=== PATIENT | female | born 1930 | race Caucasian/White ===

== ENCOUNTER 2016-09-20 15:04 | Emergency (ER) | payer OTHER ==
[~2016-09-20] VITALS: Ht 157.5 cm; Wt 54.4 kg
[~2016-09-20 15:04] MED LIST: ALPR0.25 PO; ASPI81CH43 PO; ATEN-60 PO; Atorvastatin Calcium PO; DOCU-94 PO; ESOM40CA39 PO; LEVO88TA4 PO
[2016-09-20 16:25] LABS: Basophils # (auto) 0 uL; Basophils % (auto) 0.6 % (0.0-2.0); Eosinophils # (auto) 0.2 uL; Eosinophils % (auto) 2.7 % (0.0-7.0); Hemoglobin 10.3 g/dL (12.2-16.2); Lymphocytes % (auto) 13.3 % (10.0-50.0); Mean Corpuscular Hemoglobin 29.5 pg (28.0-32.0); Mean Corpuscular Hgb Conc. 32.3 g/dL (32.0-36.0); Mean Corpuscular Volume 91.2 fL (80.0-100.0); Mean Platelet Volume 7.6 fL (7.4-10.4); Monocytes # (auto) 1.1 uL; Monocytes % (auto) 15.6 % (0.0-12.0); Neutrophils # (auto) 4.8 uL; Neutrophils % (auto) 67.8 % (37.0-80.0); Platelet Count (auto) 233 10^3/uL (140-450); Red Cell Distribution Width 14.6 % (11.6-16.0); White Blood Cell 7.2 10^3/uL (4.4-10.8)
[2016-09-20 16:28] LABS: Albumin 2.7 g/dL (3.4-5.0); BUN/Creatinine Ratio 17.2; Bilirubin, Total 0.2 mg/dL (0.2-1.0); Calcium 8.4 mg/dL (8.5-10.1); Potassium 4.1 mmol/L (3.5-5.1); Total Protein 7.4 g/dL (6.4-8.2)
[2016-09-20 23:00] VITALS: BP 114/45
== END 2016-09-20 23:29 | disposition home or self-care (01) ==
LOC: EDUNIT# 15:04 → ER 15:24
DX: T88.8XXA Other specified complications of surgical and medical care, not elsewhere classified, initial encounter (principal); L02.91 Cutaneous abscess, unspecified; I48.91 Unspecified atrial fibrillation; I25.10 Atherosclerotic heart disease of native coronary artery without angina pectoris; I13.0 Hypertensive heart and chronic kidney disease with heart failure and stage 1 through stage 4 chronic kidney disease, or unspecified chronic kidney disease; I50.9 Heart failure, unspecified; N18.9 Chronic kidney disease, unspecified; J44.9 Chronic obstructive pulmonary disease, unspecified; E78.5 Hyperlipidemia, unspecified; Z86.73 Personal history of transient ischemic attack (TIA), and cerebral infarction without residual deficits; Z85.9 Personal history of malignant neoplasm, unspecified; Z79.82 Long term (current) use of aspirin; Z87.440 Personal history of urinary (tract) infections; Z86.711 Personal history of pulmonary embolism
CPT/HCPCS: 36415; 80053; 85025; 93005; 93926

== ENCOUNTER 2019-11-03 16:16 | Inpatient (IN) | payer OTHER ==
[~2019-11-03] VITALS: Ht 165.1 cm; Wt 63.9 kg
[2019-11-03] MEDS ORDERED: SODIUM CHLORIDE 0.9% 1,000 ML IVB ONE (16:36)
[2019-11-03] MEDS ORDERED: LEVO100T8 (16:42)
[2019-11-03] MEDS ORDERED: [UNRECOGNIZED DRUG - CODE] (16:42)
[2019-11-03] MEDS ORDERED: ATEN25TA (16:42)
[2019-11-03] MEDS ORDERED: OXYB5TAB61 (16:42)
[2019-11-03] MEDS ORDERED: TIZA2TAB3 (16:42)
[2019-11-03] MEDS ORDERED: VANCOMYCIN (16:42)
[2019-11-03] MEDS ORDERED: FLUC150T41 (16:42)
[2019-11-03] MEDS ORDERED: cefTRIAXone 1GM/50ML D5W 50 ML IV ONE (17:15)
[2019-11-03 17:36] LABS: Basophils # (auto) 0 10 ^3/uL (0-0.2); Basophils % (auto) 0.8 % (0.0-2.0); Eosinophils # (auto) 0 10 ^3/uL (0-0.8); Eosinophils % (auto) 0.6 % (0.0-7.0); Hematocrit 27.3 % (36.0-46.0); Hemoglobin 9.1 g/dL (12.2-16.2); Lymphocytes % (auto) 19.9 % (10.0-50.0); Mean Corpuscular Hemoglobin 29.2 pg (28.0-32.0); Mean Corpuscular Hgb Conc. 33.4 g/dL (32.0-36.0); Mean Corpuscular Volume 87.6 fL (80.0-100.0); Monocytes # (auto) 0.6 10 ^3/uL (0-1.3); Monocytes % (auto) 12.4 % (0.0-12.0); Neutrophils # (auto) 3.2 10 ^3/uL (1.6-8.6); Neutrophils % (auto) 66.3 % (37.0-80.0); Platelet Count (auto) 226 10^3/uL (140-450); Red Blood Cells 3.11 10^6/uL (4.0-5.20); Red Cell Distribution Width 16.1 % (11.8-14.3); White Blood Cell 4.9 10^3/uL (4.4-10.8)
[2019-11-03 17:48] LABS: Magnesium 1.9 mg/dL (1.6-2.6)
[2019-11-03 17:50] LABS: Albumin 2.5 g/dL (3.4-5.0); Calcium 7.9 mg/dL (8.5-10.1); Potassium 3.5 mmol/L (3.5-5.1)
[2019-11-03 17:53] LABS: BUN/Creatinine Ratio 8.6; Bilirubin, Total 0.3 mg/dL (0.2-1.0)
[2019-11-03] MEDS ORDERED: cefTRIAXone SOD 1,000 MG VL ONE (18:43)
[2019-11-03] MEDS ORDERED: SODIUM CHLORIDE 0.9% 1,000 ML IV ONE (20:45)
[2019-11-03] MEDS ORDERED: ONDANSETRON HCL 4 MG/2 ML VIAL IV PRN (20:45)
[2019-11-03] MEDS ORDERED: VANCOMYCIN PER PHARMACY 0 MG IV SCH (20:45)
[2019-11-03] MEDS ORDERED: MORPHINE SULF INJ 2 MG/ML SYRINGE 1ML IV PRN (20:45)
[2019-11-03 21:05] VITALS: BP 110/72
[2019-11-03] MEDS ORDERED: VANCOMYCIN 1GM/250ML 250 ML IV ONE (21:45)
[2019-11-03 22:00] VITALS: BP 125/57
[2019-11-03] MEDS: PIPERACILLIN-TAZOB 3.375GM 100 ML IV SCH (22:00)
[2019-11-03] MEDS: ALBUMIN 25% 100 ML IV SCH (22:00)
[2019-11-03] MEDS ORDERED: DOCU100T15 PO (23:19)
[2019-11-03] MEDS ORDERED: LEV100T PO (23:19)
[2019-11-03] MEDS ORDERED: ATEN-60 PO (23:19)
[2019-11-03] MEDS ORDERED: ONDA-144 PO (23:19)
[2019-11-04 05:00] VITALS: BP 103/48
[2019-11-04] MEDS: PIPERACILLIN-TAZOB 3.375GM 100 ML IV SCH ×3 (05:35→21:32)
[2019-11-04] MEDS: ALBUMIN 25% 100 ML IV SCH ×3 (05:54→22:16)
[2019-11-04] MEDS: IPRATROPIUM BROM 0.5 MG/2.5ML INH SOL NEB SCH ×4 (06:29→19:38)
[2019-11-04] MEDS: ALBUTEROL SULF 2.5 MG/0.5ML(0.5%) NEB SOLN NEB SCH ×4 (06:29→19:38)
[2019-11-04 09:00] VITALS: BP 97/53
[2019-11-04 09:16] LABS: Basophils # (auto) 0 10 ^3/uL (0-0.2); Eosinophils # (auto) 0 10 ^3/uL (0-0.8); Monocytes # (auto) 0.3 10 ^3/uL (0-1.3); Neutrophils # (auto) 2.4 10 ^3/uL (1.6-8.6); Red Blood Cells 2.64 10^6/uL (4.0-5.20)
[2019-11-04 09:18] LABS: Basophils % (auto) 0.5 % (0.0-2.0); Eosinophils % (auto) 0.2 % (0.0-7.0); Hemoglobin 7.7 g/dL (12.2-16.2); Lymphocytes # (auto) 0.4 10 ^3/uL (0.4-5.4); Lymphocytes % (auto) 11.8 % (10.0-50.0); Mean Corpuscular Hemoglobin 29.2 pg (28.0-32.0); Mean Corpuscular Hgb Conc. 33.6 g/dL (32.0-36.0); Mean Corpuscular Volume 86.8 fL (80.0-100.0); Neutrophils % (auto) 77.5 % (37.0-80.0); Nucleated Red Blood Cells % 0.2 %; Platelet Count (auto) 162 10^3/uL (140-450); Red Cell Distribution Width 16.3 % (11.8-14.3)
[2019-11-04 09:35] LABS: Calcium 7.9 mg/dL (8.5-10.1); Potassium 3.5 mmol/L (3.5-5.1)
[2019-11-04 09:39] LABS: BUN/Creatinine Ratio 8.6; Bilirubin, Total 0.3 mg/dL (0.2-1.0); Total Protein 6.5 g/dL (6.4-8.2)
[2019-11-04] MEDS ORDERED: DOXY50CA PO (11:36)
[2019-11-04] MEDS ORDERED: GUAI600T23 PO (11:36)
[2019-11-04] MEDS ORDERED: ALBU0.084 NEB (11:36)
[2019-11-04] MEDS ORDERED: FERR-20 PO (11:54)
[2019-11-04] MEDS ORDERED: ASCO500C49 PO (11:54)
[2019-11-04 13:00] VITALS: BP 87/35
[2019-11-04 13:08] LABS: Hematocrit 23.4 % (36.0-46.0); Hemoglobin 7.7 g/dL (12.2-16.2); Mean Corpuscular Hemoglobin 28.6 pg (28.0-32.0); Mean Corpuscular Hgb Conc. 32.8 g/dL (32.0-36.0); Mean Corpuscular Volume 87.2 fL (80.0-100.0); Red Blood Cells 2.68 10^6/uL (4.0-5.20); Red Cell Distribution Width 16.2 % (11.8-14.3); White Blood Cell 4.1 10^3/uL (4.4-10.8)
[2019-11-04] MEDS: SODIUM CHLORIDE 0.9% 1,000 ML IV SCH ×2 (15:35→23:48)
[2019-11-04 17:00] VITALS: BP 130/46
[2019-11-04 21:51] VITALS: BP 107/60
[2019-11-05] MEDS: ALBUTEROL SULF 2.5 MG/0.5ML(0.5%) NEB SOLN NEB SCH ×4 (00:31→19:23)
[2019-11-05] MEDS: IPRATROPIUM BROM 0.5 MG/2.5ML INH SOL NEB SCH ×4 (00:31→19:23)
[2019-11-05 04:51] VITALS: BP 106/53
[2019-11-05] MEDS: PIPERACILLIN-TAZOB 3.375GM 100 ML IV SCH ×3 (05:33→22:53)
[2019-11-05 09:00] VITALS: BP 106/61
[2019-11-05 09:25] LABS: Basophils # (auto) 0 10 ^3/uL (0-0.2); Eosinophils # (auto) 0 10 ^3/uL (0-0.8); Hemoglobin 7.3 g/dL (12.2-16.2); Lymphocytes # (auto) 0.4 10 ^3/uL (0.4-5.4); Monocytes # (auto) 0.4 10 ^3/uL (0-1.3)
[2019-11-05 09:28] LABS: Basophils % (auto) 0.5 % (0.0-2.0); Eosinophils % (auto) 0.5 % (0.0-7.0); Hematocrit 22.4 % (36.0-46.0); Mean Corpuscular Hemoglobin 29.1 pg (28.0-32.0); Mean Corpuscular Hgb Conc. 32.6 g/dL (32.0-36.0); Mean Corpuscular Volume 89.2 fL (80.0-100.0); Monocytes % (auto) 11.5 % (0.0-12.0); Neutrophils # (auto) 2.8 10 ^3/uL (1.6-8.6); Neutrophils % (auto) 75.5 % (37.0-80.0); Nucleated Red Blood Cells % 0.1 %; Platelet Count (auto) 122 10^3/uL (140-450); Red Blood Cells 2.51 10^6/uL (4.0-5.20); Red Cell Distribution Width 16.5 % (11.8-14.3); White Blood Cell 3.7 10^3/uL (4.4-10.8)
[2019-11-05 09:34] LABS: BUN/Creatinine Ratio 8.7; Potassium 3.9 mmol/L (3.5-5.1)
[2019-11-05] MEDS ORDERED: VANCOMYCIN 1GM/250ML 250 ML IV SCH (10:00)
[2019-11-05] MEDS: SODIUM CHLORIDE 0.9% 1,000 ML IV SCH ×2 (10:30→19:45)
[2019-11-05 12:17] VITALS: BP_SYST 108; BP_SYST 152; BP_DIAS 45; BP_DIAS 76
[2019-11-05 16:22] VITALS: BP 106/57
[2019-11-05 21:51] VITALS: BP 111/59
[2019-11-06] MEDS: ALBUTEROL SULF 2.5 MG/0.5ML(0.5%) NEB SOLN NEB SCH ×3 (00:08→12:15)
[2019-11-06] MEDS: IPRATROPIUM BROM 0.5 MG/2.5ML INH SOL NEB SCH ×3 (00:08→12:15)
[2019-11-06 04:51] VITALS: BP 134/67
[2019-11-06] MEDS: SODIUM CHLORIDE 0.9% 1,000 ML IV SCH (07:00)
[2019-11-06] MEDS: PIPERACILLIN-TAZOB 3.375GM 100 ML IV SCH ×2 (07:00→13:36)
[2019-11-06] MEDS ORDERED: IPR002IS NEB (08:45)
[2019-11-06 09:00] VITALS: BP 138/67
[2019-11-06 09:03] LABS: Basophils # (auto) 0 10 ^3/uL (0-0.2); Basophils % (auto) 0.5 % (0.0-2.0); Eosinophils # (auto) 0 10 ^3/uL (0-0.8); Hemoglobin 7.6 g/dL (12.2-16.2); Mean Corpuscular Hemoglobin 29.1 pg (28.0-32.0); Nucleated Red Blood Cells % 0.1 %; Red Cell Distribution Width 16.6 % (11.8-14.3)
[2019-11-06 09:05] LABS: Eosinophils % (auto) 0.9 % (0.0-7.0); Hematocrit 22.9 % (36.0-46.0); Lymphocytes # (auto) 0.4 10 ^3/uL (0.4-5.4); Lymphocytes % (auto) 8.4 % (10.0-50.0); Mean Corpuscular Hgb Conc. 33.1 g/dL (32.0-36.0); Monocytes # (auto) 0.5 10 ^3/uL (0-1.3); Monocytes % (auto) 10.5 % (0.0-12.0); Neutrophils # (auto) 3.5 10 ^3/uL (1.6-8.6); Neutrophils % (auto) 79.7 % (37.0-80.0); Platelet Count (auto) 147 10^3/uL (140-450); White Blood Cell 4.3 10^3/uL (4.4-10.8)
[2019-11-06 09:21] LABS: BUN/Creatinine Ratio 9.4; Calcium 7.9 mg/dL (8.5-10.1); Magnesium 1.5 mg/dL (1.6-2.6)
[2019-11-06 11:28] VITALS: BP 138/67
[2019-11-06 12:07] VITALS: BP 128/80
[2019-11-06 13:00] VITALS: BP 126/64
== END 2019-11-06 15:10 | disposition home health service (06) | DRG 190 ==
LOC: ER 16:16 → EDBD 16:16 → OVERFLOW 16:17 → CENTRAL 22:04
PROVIDERS: ADMIT Internal Medicine; ATTEND Internal Medicine
DX: J44.0 Chronic obstructive pulmonary disease with (acute) lower respiratory infection (principal); J18.9 Pneumonia, unspecified organism; E87.1 Hypo-osmolality and hyponatremia; E44.0 Moderate protein-calorie malnutrition; I13.0 Hypertensive heart and chronic kidney disease with heart failure and stage 1 through stage 4 chronic kidney disease, or unspecified chronic kidney disease; N17.9 Acute kidney failure, unspecified; R62.7 Adult failure to thrive; Z93.3 Colostomy status; D50.9 Iron deficiency anemia, unspecified; I50.9 Heart failure, unspecified; I25.10 Atherosclerotic heart disease of native coronary artery without angina pectoris; F32.9 Major depressive disorder, single episode, unspecified; F41.9 Anxiety disorder, unspecified; N18.3 Chronic kidney disease, stage 3 (moderate); D63.8 Anemia in other chronic diseases classified elsewhere; F01.50 Vascular dementia, unspecified severity, without behavioral disturbance, psychotic disturbance, mood disturbance, and anxiety; Z68.23 Body mass index [BMI] 23.0-23.9, adult; Z79.82 Long term (current) use of aspirin; Z74.01 Bed confinement status; Z79.899 Other long term (current) drug therapy; Z82.0 Family history of epilepsy and other diseases of the nervous system; Z86.73 Personal history of transient ischemic attack (TIA), and cerebral infarction without residual deficits; S71.002A Unspecified open wound, left hip, initial encounter; B96.89 Other specified bacterial agents as the cause of diseases classified elsewhere
CPT/HCPCS: 36415; 71045; 80048; 80053; 80202; 82565; 83605; 83735; 84484; 85025; 85027; 87040; 87077; 87081; 87186; 87205; 87804; 93005; 94640; 99291; G0378; J0696; J2543; P9047

== ENCOUNTER 2020-06-19 18:19 | Observation (INO) | payer OTHER ==
[~2020-06-19] VITALS: Ht 162.6 cm; Wt 40.4 kg
[~2020-06-19 18:19] MED LIST changes: +ALBU0.084 NEB; -ALPR0.25 PO; +ASCO500C49 PO; +DOXY50CA PO; +FERR-20 PO; +GUAI600T23 PO; +IPR002IS NEB; +ONDA-144 PO; +OXYB5TAB61; +TIZA2TAB3
[2020-06-19 20:05] LABS: Urine Bacteria FEW /hpf (None Seen); Urine Blood 2+ /uL (Negative); Urine Hyaline Cast FEW /lpf (0 - 2); Urine Specific Gravity 1.011 (1.001-1.035); Urine WBC 16 /hpf (0 - 5)
[2020-06-19 22:07] LABS: Eosinophils # (auto) 0 10 ^3/uL (0-0.8); Lymphocytes # (auto) 0.5 10 ^3/uL (0.4-5.4); Monocytes # (auto) 0.4 10 ^3/uL (0-1.3); Neutrophils # (auto) 4.2 10 ^3/uL (1.6-8.6); White Blood Cell 5.1 10^3/uL (4.4-10.8)
[2020-06-19 22:08] LABS: Basophils # (auto) 0.1 10 ^3/uL (0-0.2); Eosinophils % (auto) 0.6 % (0.0-7.0); Hematocrit 19.3 % (36.0-46.0); Mean Corpuscular Hemoglobin 28.3 pg (28.0-32.0); Mean Corpuscular Hgb Conc. 32.5 g/dL (32.0-36.0); Mean Corpuscular Volume 86.9 fL (80.0-100.0); Monocytes % (auto) 7.7 % (0.0-12.0); Neutrophils % (auto) 80.7 % (37.0-80.0); Nucleated Red Blood Cells % 0.1 %; Red Blood Cells 2.22 10^6/uL (4.0-5.20); Red Cell Distribution Width 16.4 % (11.8-14.3)
[2020-06-19 22:17] LABS: Hemoglobin 6.3 g/dL (12.2-16.2)
[2020-06-19 22:24] LABS: Calcium 8.6 mg/dL (8.5-10.1); Potassium 4.4 mmol/L (3.5-5.1)
[2020-06-19 22:27] LABS: BUN/Creatinine Ratio 34.6
[2020-06-19 22:29] LABS: Bilirubin, Total 0.2 mg/dL (0.2-1.0); Total Protein 6.8 g/dL (6.4-8.2)
[2020-06-19 22:35] LABS: INR 1.01 (0.9-1.15)
[2020-06-20] VITALS (14 sets, daily range): BP systolic 104–137; BP diastolic 44–90
[2020-06-20] MEDS ORDERED: VANCOMYCIN PER PHARMACY 0 MG IV SCH (01:45)
[2020-06-20] MEDS ORDERED: MORPHINE SULFATE INJECTION 2 MG/ML SYRG IV PRN (01:45)
[2020-06-20] MEDS ORDERED: MORPHINE SULFATE 4 MG/ML SYR/VIAL IV PRN (01:45)
[2020-06-20] MEDS ORDERED: NITROGLYCERIN 0.4 MG SL TAB SL PRN (01:45)
[2020-06-20] MEDS ORDERED: ONDANSETRON HCL 4 MG/2 ML VIAL IV PRN (01:45)
[2020-06-20] MEDS ORDERED: VANCOMYCIN 1GM/250ML 250 ML IV ONE (02:00)
[2020-06-20] MEDS: D5W 5% 1,000 ML IV SCH ×2 (02:22→15:05)
[2020-06-20] MEDS: PIPERACILLIN-TAZOB 3.375GM 100 ML IV SCH ×2 (03:39→12:15)
[2020-06-20] MEDS ORDERED: AMPI500C8 IV (05:22)
[2020-06-20] MEDS ORDERED: VANC500I IV (05:22)
[2020-06-20] MEDS ORDERED: PANTOPRAZOLE 40 MG/10 ML VIAL INJ IV SCH (10:00)
[2020-06-20 17:00] LABS: Hematocrit 33.3 % (36.0-46.0); Hemoglobin 11.2 g/dL (12.2-16.2)
[2020-06-20] MEDS ORDERED: PIPERACILLIN-TAZOB 3.375GM 100 ML IV SCH (20:00)
== END 2020-06-20 21:58 | disposition home or self-care (01) ==
LOC: EDBD 18:19 → ER 18:19 → INTOOBSV 19:20 → TELE 19:20 → TELE-WESTW 06-20 04:11
PROVIDERS: ADMIT Hospitalist; ATTEND Hospitalist
DX: D50.0 Iron deficiency anemia secondary to blood loss (chronic) (principal); Z20.828 Contact with and (suspected) exposure to other viral communicable diseases; E03.9 Hypothyroidism, unspecified; J44.9 Chronic obstructive pulmonary disease, unspecified; L89.154 Pressure ulcer of sacral region, stage 4; R62.7 Adult failure to thrive; M62.462 Contracture of muscle, left lower leg; M62.461 Contracture of muscle, right lower leg; E78.00 Pure hypercholesterolemia, unspecified; I13.0 Hypertensive heart and chronic kidney disease with heart failure and stage 1 through stage 4 chronic kidney disease, or unspecified chronic kidney disease; I50.9 Heart failure, unspecified; N18.9 Chronic kidney disease, unspecified; I25.10 Atherosclerotic heart disease of native coronary artery without angina pectoris; F41.8 Other specified anxiety disorders; F03.90 Unspecified dementia, unspecified severity, without behavioral disturbance, psychotic disturbance, mood disturbance, and anxiety; Z79.82 Long term (current) use of aspirin; Z86.73 Personal history of transient ischemic attack (TIA), and cerebral infarction without residual deficits; Z79.899 Other long term (current) drug therapy; Z87.440 Personal history of urinary (tract) infections; Z74.01 Bed confinement status; Z87.19 Personal history of other diseases of the digestive system
CPT/HCPCS: 36415; 36430; 71045; 80053; 81001; 85014; 85018; 85025; 85610; 86850; 86870; 86900; 86901; 87040; 87081; 87426; 93005; 96361; 96365; 96366; 96367; 96375; 99285; C9113; G0378; J2543; J3370; P9016; U0003; 86922